=== PATIENT | female | born 1965 | race African-American/Black ===

== ENCOUNTER 2017-04-18 22:11 | Emergency (ER) | payer OTHER ==
[~2017-04-18] VITALS: Ht 172.7 cm; Wt 99.8 kg
--- NOTE | ~2017-04-18 | EKG ---
PATIENT: GO POOL UNIT #: [id number] Ventricular Rate: 89 BPM Atrial Rate: 90 BPM P-R Interval: 158 ms QRS Duration: 82 ms Q-T Interval: 368 ms QTC Calculation(Bezet): 447 ms P Lusk: 47 degrees Calculated R Lusk: -19 degrees Calculated T Lusk: 10 degrees Diagnosis Line: Normal sinus rhythm Diagnosis Line: Moderate voltage criteria for LVH, may be normal Diagnosis Line: variant Diagnosis Line: Borderline ECG Diagnosis Line: No previous ECGs available Diagnosis Line: Confirmed by ELIA ALANIS MD ([id number]) on Diagnosis Line: 04/27/2017 9:56:56 PM INTERPRETING MD: ABRAHAM
--- NOTE | ~2017-04-18 | CR63 ---
[facility] A Service of [facility] RADIOLOGY TEXT RESULTS PATIENT: GO OPOL LOCATION: SED : 63 UNIT #: [id number] AGE: [address]: Alley Velez SEX: F ORDER DR: [id number] [address] [address] [id number] E MR#: [id number] Acc #: [id number] NAME: GO POOL : 1965 SEX: F STUDY DATE/TIME: 04/19/2017 0:58 UNIT: SED ROOM: STUDY DESCRIPTION: CR Chest 2 View Attending Physician: Alley Velez Pa-C Ordering Physician: Staff Doctor Not On Primary Care Physician: Colby Estevez M.D. MEDICAL IMAGING REPORT This report is preliminary unless electronic signature is present. EXAM PA and lateral chest 04/19/2017 HISTORY 51-year-old female in the ED complaining of 1-day history of shortness of air and dizziness. TECHNIQUE PA and lateral upright chest series. FINDINGS The heart is mildly enlarged. Pulmonary vascularity is normal. The lungs appear clear. No visible pulmonary infiltrate or pleural effusion. No change since 04/08/2016. IMPRESSION No active disease. Mild cardiomegaly. Dictated by... Stephan Kovacs M.D. THIS IS AN ELECTRONICALLY VERIFIED REPORT Stephan Kovacs M.D. at 04/19/2017 5:26 AM ROSALINDAW/yoko TD: 04/19/2017 03:22 JOB #: [id number] MEDICAL IMAGING REPORT Page 1 of 1
--- NOTE | ~2017-04-18 | CR71 ---
[facility] A Service [facility] RADIOLOGY TEXT RESULTS PATIENT: GO POOL LOCATION: SED : 63 UNIT #: [id number] AGE: [address]: Alley Velez SEX: F ORDER DR: [id number] [address] [address] [id number] E MR#: [id number] Acc #: [id number] NAME: GO POOL : 1965 SEX: F STUDY DATE/TIME: 04/18/2017 23:30 UNIT: SED ROOM: STUDY DESCRIPTION: CR Chest Single View Attending Physician: Alley Velez Pa-C Ordering Physician: Staff Doctor Not On Primary Care Physician: Colby Estevez M.D. MEDICAL IMAGING REPORT This report is preliminary unless electronic signature is present. EXAM AP portable chest 04/18/2017 HISTORY 51-year-old female in the ED complaining of 1-day history of shortness of air and dizziness. TECHNIQUE AP portable chest x-ray. FINDINGS The examination is nearly nondiagnostic due to radiographic underexposure, particularly of the lung bases as well as poor radiographic positioning. Repeat upright PA and lateral examination is recommended. Mid and upper lungs are clear. Heart size is within normal limits. This portion of the exam is unchanged since 04/08/2016. IMPRESSION Technically limited study as noted above. Dictated by... Stephan Kovacs M.D. THIS IS AN ELECTRONICALLY VERIFIED REPORT Stephan Kovacs M.D. at 04/19/2017 5:26 AM ROSALINDAW/yoko TD: 04/19/2017 00:27 JOB #: [id number] MEDICAL IMAGING REPORT [facility] A Service [facility] RADIOLOGY TEXT RESULTS PATIENT: GO POOL LOCATION: SED : 63 UNIT #: [id number] AGE: [address]: Alley Velez SEX: F ORDER DR: Page 1 of 1
[~2017-04-18 22:11] MED LIST: DICYCLOMINE HCL20 MG PO; LIBRIUM PO; PAXIL10 MG PO; PHENERGAN PO; PRILOSEC PO; ULTRAM PO
[2017-04-18 23:31] LABS: BASOPHIL% 0.8 % (0-2.5); EOSINOPHIL# 0.3 X10e3 (0-0.7); EOSINOPHIL% 5.5 % (0.0-7.0); HEMATOCRIT 37.3 % (35.0-45.0); HEMOGLOBIN 12.4 gm/dL (12.0-16.0); LYMPHOCYTE# 2.6 X10e3 (1.0-3.5); LYMPHOCYTE% 44.9 % (17.0-45.0); MEAN CELL VOLUME 81.2 FL (83-96); MEAN CORPUSCULAR HGB CONC 33.2 g/dL (30-36); MEAN PLATELET VOLUME 8.9 FL (6.5-11.5); MONOCYTE# 0.6 X10e3 (0-1.0); MONOCYTE% 10.8 % (3.0-12.0); NEUTROPHIL# 2.2 X10e3 (1.5-7.1); PLATELET COUNT 267 X10e3 (140-420); RED BLOOD COUNT 4.59 X10e (3.90-5.30); RED CELL DISTRIBUTION WIDTH 15.3 % (11.0-15.5); WHITE BLOOD COUNT 5.8 X10e3 (4.0-10.5)
[2017-04-18 23:36] LABS: DIFF IND NO
[2017-04-18 23:44] LABS: POC - CKMB 1.8 ng/mL (0.0-7.9); POC - TROPONIN <0.05 ng/mL (<=0.05)
[2017-04-19 00:01] LABS: BILIRUBIN,TOTAL 0.2 mg/dL (0.2-2.0); BUN/CREATININE RATIO 15.55; CALCIUM SERUM 8.8 mg/dL (8.4-10.2); CREATININE SERUM 0.9 mg/dL (0.6-1.4); GLOM FILT RATE Estimated 85.3 mL/min (>60); POTASSIUM 3.2 mmol/L (3.5-5.1); PROTEIN TOTAL SERUM 7.6 g/dL (6.0-8.3)
== END 2017-04-19 01:53 | disposition home or self-care (01) ==
LOC: SED 22:11
PROVIDERS: Physician Assistant
DX: R42 Dizziness and giddiness (principal); Z88.0 Allergy status to penicillin; Z88.8 Allergy status to other drugs, medicaments and biological substances; I10 Essential (primary) hypertension; Z90.49 Acquired absence of other specified parts of digestive tract; Z90.710 Acquired absence of both cervix and uterus; Z79.899 Other long term (current) drug therapy
CPT/HCPCS: 36415; 71010; 71020; 80053; 82553; 83880; 84484; 85025; 93005; 99285